=== PATIENT | female | born 1985 | race African-American/Black ===

== ENCOUNTER 2022-08-04 22:47 | Emergency (ER) | payer OTHER ==
--- NOTE | 2022-08-04 23:45 | NUR ---
PATIENT WAS CALLED TO BE TRIAGED BUT NOT PRESENT IN THE WAITING ROOM OR OUTSIDE OF ER. [facility] SAW PATIENT WALKING AWAY FROM HOSPITAL.
== END 2022-08-05 00:05 | disposition left against medical advice (07) ==
LOC: ER 22:47
DX: Z53.21 Procedure and treatment not carried out due to patient leaving prior to being seen by health care provider (principal)